=== PATIENT | male | born 1975 | race Two or more races ===

== ENCOUNTER 2020-09-25 08:04 | Emergency (ER) | payer OTHER ==
[~2020-09-25] VITALS: Ht 182.9 cm; Wt 91.7 kg
--- NOTE | 2020-09-25 08:32 | PHYS DOC ---
Past History Past Medical History: No Pertinent History Past Surgical History: Cholecystectomy, Other Additional Past Surgical Histo: KNEE SURGERY; REVERSED VASTECTOMY Alcohol Use: Occasionally General Adult EDM: Chief Complaint: LOWER EXT PAIN HPI: HPI: Patient is a 45-year-old male coming in for pain to his left knee. Patient s tates that yesterday when he was getting up from watching TV felt increased pain in his knee. Patient states anytime he tries to move his leg feels like it is "catching". Patient states that shooting pain with flexion of knee. Has a history of prior knee surgeries including arthroscopy and a cadaver ligament graft. Patient states he thinks he had one more ligament injury after that. Denies any history of meniscus injuries. Denies any swelling, redness, or fevers. Denies any lower extremity edema. States he otherwise has been well. Review of Systems: Review of Systems: All other systems within normal limits except for as noted in the HPI Allergies: Allergies: Allergies Coded Allergies Type Severity Reaction Last Updated Verified No Known Drug Allergies 09/25/20 No Physical Exam: PE: Constitutional: Well developed, well nourished, no acute distress, non-toxic appearance. [] HENT: Normocephalic, atraumatic, bilateral external ears normal, nose normal. [] Eyes: PERRLA, conjunctiva normal, no discharge. [] Neck: No rigidity, supple, no stridor. [] Cardiovascular: Regular rate and rhythm, brisk cap refill [] Lungs & Thorax: Non labored symmetric respirations, no tachypnea or respiratory distress [] Abdomen: Soft, nondistended. Skin: Warm, dry, no erythema, no rash. [] Back: Unremarkable Extremities: No deformities, range of motion grossly intact, no lower extremity edema. Left knee exam. No varus, valgus, anterior, or posterior laxity. Pain not producible with axial loading. No joint effusion or erythema. [] Neurologic: Alert and oriented X 3, no focal deficits noted. [] Psychologic: Affect normal, judgement normal, mood normal. [] Current Patient Data: Vital Signs: Vital Signs Date Time Temp Pulse Resp B/P (MAP) Pulse Ox O2 Delivery O2 Flow Rate FiO2 09/25/20 08:15 97.9 68 18 128/79 (95) 100 Room Air EKG: EKG: [] Radiology/Procedures: Radiology/Procedures: Left knee 3 views. HISTORY: Left knee pain 3 views were taken of the left knee. There is evidence of osteoarthritis with mild joint space narrowing medially. There is hypertrophic spurring. There is no fracture. There is a small joint effusion. There is spurring on the patella. IMPRESSION: 1. Osteoarthritis left knee. 2. Left knee small joint effusion. [] Heart Score: C/O Chest Pain: No Risk Factors: Risk Factors: DM, Current or recent (<one month) smoker, HTN, HLP, family history of CAD, obesity. Risk Scores: Score 0 - 3: 2.5% MACE over next 6 weeks - Discharge Home Score 4 - 6: 20.3% MACE over next 6 weeks - Admit for Clinical Observation Score 7 - 10: 72.7% MACE over next 6 weeks - Early Invasive Strategies Course & Med Decision Making: Course & Med Decision Making Pertinent Labs and Imaging studies reviewed. (See chart for details) [] Dragon Disclaimer: Dragon Disclaimer: This electronic medical record was generated, in whole or in part, using a voice recognition dictation system. Departure Departure: Impression: Primary Impression: Knee pain, left Disposition: 01 DC HOME SELF CARE/HOMELESS Condition: STABLE Referrals: PCP,NO (PCP) [facility] Patient Instructions: RICE - Routine Care for Injuries Additional Instructions: Purchase hinged knee brace and wear whenever active. Follow-up with orthopedics TRISTIAN DELGADILLO MD Sep 25, 2020 08:32
--- NOTE | 2020-09-25 09:11 | RAD ---
Left knee 3 views. HISTORY: Left knee pain 3 views were taken of the left knee. There is evidence of osteoarthritis with mild joint space narrow ing medially. There is hypertrophic spurring. There is no fracture. There is a small joint effusion. There is spurring on the patella. IMPRESSION: 1. Osteoarthritis left knee. 2. Left knee small joint effusion. Electronically signed by: Geovanny Jaeger MD (09/25/2020 9:09 AM) [id number]
[2020-09-25 09:31] VITALS: BP 118/76
== END 2020-09-25 09:39 | disposition home or self-care (01) ==
LOC: ER 08:04
DX: M25.562 Pain in left knee (principal)
CPT/HCPCS: 73564; 99283